=== PATIENT | male | born 1965 | race Caucasian/White ===

== ENCOUNTER 2020-02-26 15:23 | Inpatient (IN) | payer OTHER ==
[~2020-02-26] VITALS: Ht 175.3 cm; Wt 85.7 kg
[~2020-02-26 15:23] MED LIST: ADULT LOW DOSE81 MG PO; BENADRYL25 MG PO; CLARITIN10 MG PO; CLARITIN5 MG PO; EPIPEN0.3 MG/0.3; FAMOTIDINE PO; MEDROLDOSEPACK PO; PEPCID40 MG PO; PREDNISONE; PREDNISONE50 MG PO; ZPAK PO
[2020-02-26 15:27] VITALS: BP 156/73
[2020-02-26 15:48] LABS: URINE BILIRUBIN NEGATIVE (Negative); URINE BLOOD NEGATIVE (Negative); URINE CLARITY CLEAR; URINE COLOR YELLOW; URINE GLUCOSE-RANDOM* NEGATIVE (Negative); URINE KETONES 1+ (Negative); URINE LEUKOCYTES-REFLEX NEGATIVE (Negative); URINE NITRITE-REFLEX NEGATIVE (Negative); URINE PROTEIN (DIPSTICK) NEGATIVE (Negative); URINE SPECIFIC GRAVITY >= 1.030 (1.005-1.035); URINE UROBILINOGEN 0.2 E.U./dl (0.2-1.0)
[2020-02-26 16:08] LABS: HEMATOCRIT 38.1 % (42.0-52.0); HEMOGLOBIN 13.1 gm/dL (14.0-18.0); MCH 31.3 pg (26.0-34.0); MCHC 34.4 g/dL (28.0-37.0); MCV 90.9 fL (80.0-100.0); PLATELET COUNT 259 thou/uL (150-400); RBC 4.18 mil/uL (4.50-6.00); RDW 12.2 % (10.5-14.5); WBC 20.1 thou/uL (4.0-11.0)
[2020-02-26 16:15] LABS: CALCIUM 9.5 mg/dL (8.5-10.1); CREATININE 1.1 mg/dL (0.7-1.3); POTASSIUM 3.9 mmol/L (3.5-5.1)
[2020-02-26 16:23] LABS: ALBUMIN 4.1 g/dL (3.4-5.0); TOTAL BILIRUBIN 0.6 mg/dL (0.2-1.0); TOTAL PROTEIN 7.8 g/dL (6.4-8.2)
[2020-02-26 16:31] LABS: ABSOLUTE NEUTROPHILS 18.7 thou/uL (1.4-8.2); ANISOCYTOSIS 1+
[2020-02-26] MEDS ORDERED: ALLOPURINOL 10100 M3 PO (17:40)
[2020-02-26 20:00] VITALS: BP 162/82
[2020-02-26 21:25] VITALS: BP 123/73
--- NOTE | 2020-02-26 23:51 | NUR ---
ADMITTED TO THE UNIT AT APPROXIMATELY 2140. PT IS A/O X4 AND IS UP AD CONNOR. PT WAS VERY AGITATED AND IRRITABLE STATING HE WANTED MORE PAIN MEDS. THIS NURSE WAS ABLE TO GIVE HIM PO MEDS DUE TO THE IV PAIN MEDICATION WASN'T DUE FOR ANOTHER HOUR. THIS MADE THE PT INCREASINGLY AGITATED. HE CALLED HIS YELLING THAT THE HOSPITAL WASN'T DOING ANYTHING AT ALL TO CONTROL HIS PAIN. THIS NURSE PROVIDED PO PAIN MEDS, SCHEDULED ANTI-INFLAMMATORY, AND AN HOUR LATER HIS PRN PAIN IV PAIN MEDICATIONS. PT SEEMED TO GET SOME RELIEF STATING HE WAS VERY SORRY FOR HIS ACTIONS AND WORDS PREVIOUSLY. AT THIS TIME HE IS NPO IN 5 MIN AWAITING SURGERY TOMORROW. HE IS LYING IN HIS BED AND APPEARS TO BE SLEEPING. CALL LIGHT IS WITHIN REACH. ADMISSION IS COMPLETED. CARE PLAN ACTIVATED. ANTIBIOTIC STARTED. TEMPERATURE ELEVATED AT ADMISSION AND WAS GIVEN PRN MEDICATION. WILL CONTINUE TO MONITOR.
[2020-02-27 04:00] VITALS: BP 118/70
[2020-02-27 04:58] LABS: HEMATOCRIT 34.8 % (42.0-52.0); HEMOGLOBIN 11.9 gm/dL (14.0-18.0); MCH 31.2 pg (26.0-34.0); MCHC 34.3 g/dL (28.0-37.0); MCV 91.1 fL (80.0-100.0); RBC 3.82 mil/uL (4.50-6.00); RDW 12.4 % (10.5-14.5); WBC 13.7 thou/uL (4.0-11.0)
[2020-02-27 05:02] LABS: ALBUMIN 3.2 g/dL (3.4-5.0); CALCIUM 8.6 mg/dL (8.5-10.1); CREATININE 1.2 mg/dL (0.7-1.3); PHOSPHORUS 3.5 mg/dL (2.5-4.9)
[2020-02-27 16:10] VITALS: BP 109/69
[2020-02-27 20:03] VITALS: BP 107/62
--- NOTE | 2020-02-28 02:49 | NUR ---
ASSUMED CARE OF PT AT 1900. PT IS A/O X4 AND IS UP AD CONNOR. LAP SITES ARE C/D/I. POWER DRAIN CONNECTED AND WAS DRAINING RED DRAINAGE. AT THIS TIME HOWEVER PT HAD ACCIDENTLY ROLLED IN HIS SLEEP ON TOP OF THE BULB OF THE POWER AND NOW IT IS NOT PULLING SUCTION. C/O PAIN. PRN PAIN MEDICATION GIVEN PER MAY. CALL LIGHT IS WITHIN REACH. AT THIS TIME PT IS LYING IN HIS BED AND APPEARS TO BE SLEEPING. WILL CONTINUE TO MONITOR.
[2020-02-28 05:28] LABS: HEMATOCRIT 31.4 % (42.0-52.0); HEMOGLOBIN 10.5 gm/dL (14.0-18.0); MCHC 33.4 g/dL (28.0-37.0); RBC 3.38 mil/uL (4.50-6.00); RDW 12.2 % (10.5-14.5); WBC 14.2 thou/uL (4.0-11.0)
[2020-02-28 05:51] LABS: ALBUMIN 2.9 g/dL (3.4-5.0); CALCIUM 8.7 mg/dL (8.5-10.1); CREATININE 1.1 mg/dL (0.7-1.3); PHOSPHORUS 2.9 mg/dL (2.5-4.9); POTASSIUM 4.1 mmol/L (3.5-5.1)
[2020-02-28 07:50] VITALS: BP 98/63
--- NOTE | 2020-02-28 09:39 | NUR ---
Assumed care of pt. at 0700. Pt. was calm and cooperative. Pt. complains of pain, but wishes to refrain from use of hydromorphone today.
[2020-02-28 20:00] VITALS: BP 119/71
[2020-02-29 02:45] VITALS: BP 122/69
--- NOTE | 2020-02-29 04:35 | NUR ---
PATIENT ALERT AND ORIENTED X4. UP ADLIB IN ROOM. IVF INFUSING W/O COMPLICATION. PATIENT C/O VOIDING TOO MUCH. THIS NURSE REMINDED HIM THAT HE HAD IVF INFUSING AND PATIENT STATED HE HAD BEEN DRINKING A LOT OF WATER. URINAL PLACED AT BEDSIDE FOR RELIEF OF GOING TO THE BATHROOM. POWER MONITORED. MEDICATED FOR PAIN X2 AT TIME OF NOTE. SITES ARE DRY AND INTACT. WILL MONITOR.
[2020-02-29 08:30] VITALS: BP 117/70
[2020-02-29 16:39] VITALS: BP 122/87
--- NOTE | 2020-02-29 17:50 | NUR ---
PT ASSESSED AT START OF SHIFT. C/O MUCH ABD PAIN EARLY THAT HAS GOTTEN BETTER THROUGHOUT THE SHIFT. AMBULATING MULTPLE TIMES IN THE HALLS AND PASSING LARGE AMTS OF FLATUS. SCANT SEROUS DRAINAGE FROM POWER DRAIN. DIET ADVANCED PER DR. HEMPHILL BUT PT TAKING IT SLOW AND EATING SOUPS AND NON GAS FORMING FOODS. SIMETHECONE TABS ADDED WELL. HERE ALL ATERNOON TO VISIT.
[2020-02-29 19:19] VITALS: BP 131/75
--- NOTE | 2020-03-01 03:29 | NUR ---
ASSESSED AT START OF SHIFT. PT C/O MAJOR PAIN IN ABD. IV AND PO PAIN MEDS GIVEN. ENCOURAGED PT TO AMBULATE THE HALLWAYS. IV INTACT WITH FLUIDS INFUSING. PT VOIDING VIA URINAL. PT STATES PAIN IS WORSE THAN PRIOR TO SURGERY. PAIN MEDS GIVEN ROUND THE CLOCK TO HELP WITH PAIN. CALL LIGHT AT REACH AND WILL CONT TO MONITOR.
[2020-03-01 05:11] VITALS: BP 144/83
[2020-03-01 08:47] VITALS: BP 135/78
[2020-03-01 17:01] VITALS: BP 150/87
--- NOTE | 2020-03-01 17:31 | NUR ---
Assumed care of pt. at 0700. Pt. is severe pain and is visibly sweating. Pain medication given appropriately until pain was managable. Pt. was able to function and ambulate without issue for the majority of the day. In the late afternoon pain reached breakthrough again and prn hydromorphone was used. Pain managed again. It is imperative that pt. receives oxcycodone q4 to minimize pain and manage adequately.
--- NOTE | 2020-03-01 18:06 | PATH ---
[facility] [place] [address] PATHOLOGY RPT PROCEDURE Name: KERVIN KINGSTON Room #: 448-P ADM IN M.R.#: [id number] Admission: 02/26/20 Date of : 63 Discharge: Report #: [id number] Path Case #: [id number] [facility] Accession Number: [id number] . 01 Material submitted: . appendix - APPENDIX . 01 Clinical history: . APPENDICITIS . 02 Diagnosis: Appendix, appendectomy: - Marked acute appendicitis along with acute serositis. . (IUV:mml; 03/01/2020) [facility] 03/01/2020 1619 Local . 02 Electronically signed: . Rachele Jain MD, Pathologist NPI- [id number] . 01 Gross description: . Received in formalin labeled "Kervin Kingston, appendix" is a fragmented appendectomy specimen measuring in aggregate 7.2 x 2.4 x 0.5 cm, with the fragments ranging from 1.2-6.4 cm in greatest dimension. One fragment displays a staple line margin, consistent with the proximal appendiceal margin. The appendix displays multiple ragged areas, consistent with perforation. The ragged areas are inked blue. The external surfaces are charlton-pink to red brown and focally hemorrhagic. Upon sectioning, the average luminal diameter is 0.3 cm. Land Planner sections are submitted in cassette A1, with the proximal margin inked black. ([facility]; 02/29/2020) [facility] 02/29/2020 1104 Local . 02 Pathologist provided ICD-10: K35.80, K65.8 . 02 CPT . 417544 Specimen Comment: A courtesy copy of this report has been sent to [phone], [phone] Specimen Comment: [phone] Specimen Comment: Report sent to / DR SHIELDS Performed at: [address] [place] [id number] MD Bal Mccarthy MD Phone: [phone] Performed at: [address] [place] [address] PATHOLOGY RPT PROCEDURE Name: KERVIN KINGSTON Room #: 448-P ADM IN M.R.#: [id number] Admission: 02/26/20 Date of : 63 Discharge: Report #: [id number] Path Case #: [id number] [facility] [address] [id number] MD Rachele Jain MD Phone: [phone]
[2020-03-01 20:32] VITALS: BP 152/80
[2020-03-02 05:08] LABS: ABSOLUTE NEUTROPHILS 9.5 thou/uL (1.4-8.2); BASOPHILS 0.7 % (0.0-2.0); EOSINOPHILS 2.8 % (0.0-3.0); HEMATOCRIT 33.1 % (42.0-52.0); LYMPHOCYTES 17.7 % (24.0-44.0); MCH 30.7 pg (26.0-34.0); MCHC 33.3 g/dL (28.0-37.0); MCV 92.2 fL (80.0-100.0); MONOCYTES 8.9 % (1.0-8.0); PLATELET COUNT 299 thou/uL (150-400); POLYS 69.9 % (36.0-66.0); RBC 3.59 mil/uL (4.50-6.00); RDW 12.7 % (10.5-14.5); WBC 13.6 thou/uL (4.0-11.0)
--- NOTE | 2020-03-02 05:27 | NUR ---
ASSUMED CARE OF PT @2100. A&OX4. PAIN MANAGED WITH 20MG OXYCODONE Q4. PT UP AD CONNOR IN THE HALLWAYS. ANTICIPATING D/C TOMORROW. IV INTACT WITH ABX INFUSING. ADEQUATE PO INPUT AND OUT PUT. POWER DRAIN IN PLACE. WILL CONT TO MONITOR.
[2020-03-02 08:00] VITALS: BP 130/83
[2020-03-02] MEDS ORDERED: NORCO 10-325 T1 EACH PO (10:01)
[2020-03-02] MEDS ORDERED: AUGMENTIN 875-1 EACH PO (10:01)
[2020-03-02 10:24] VITALS: BP 130/83
--- NOTE | 2020-03-02 12:07 | NUR ---
Assumed care of pt at 0700. Pt a&ox4. Surgical incisions well approximated. J.P. drain removed by doctor. Pt discharging to home today. Noticed Dr had prescribed hydrocodone and patient has been on a high dose of percocet in the hospital. Provider notified. New script written.. Pt ambulates with steady gait. Call light within reach. Will continue to monitor.
[2020-03-08] MEDS ORDERED: NORCO 10-325 T1 EACH PO (12:57)
== END 2020-03-02 12:34 | disposition home or self-care (01) | DRG 853 ==
LOC: ER 15:23 → 4S 17:58 → EROBS 17:58 → 4S 20:45
PROVIDERS: Physician Assistant; Surgery; ADMIT Surgery; ATTEND Surgery
PROC: 0DTJ4ZZ Resection of Appendix, Percutaneous Endoscopic Approach (ICD-10-PCS; principal; 2020-02-27)
DX: A41.9 Sepsis, unspecified organism (principal); K35.32 Acute appendicitis with perforation, localized peritonitis, and gangrene, without abscess; F17.210 Nicotine dependence, cigarettes, uncomplicated; Z20.828 Contact with and (suspected) exposure to other viral communicable diseases; Z86.73 Personal history of transient ischemic attack (TIA), and cerebral infarction without residual deficits; Z88.8 Allergy status to other drugs, medicaments and biological substances; Z88.1 Allergy status to other antibiotic agents; Z91.010 Allergy to peanuts; Z79.82 Long term (current) use of aspirin; Z79.899 Other long term (current) drug therapy
CPT/HCPCS: 10195; 50010; 50101; 50411; 50555; 50558; 50739; 50740; 51489; 52265; 53307; 53310; 53312; 54022; 54118; 56462; 56525; 56526; 62110; 62900; 70005